=== PATIENT | female | born 1955 | race African-American/Black ===

== ENCOUNTER 2022-05-28 12:03 | Emergency (ER) | payer MEDICAID, OTHER ==
[~2022-05-28] VITALS: Ht 167.6 cm; Wt 90.0 kg
[~2022-05-28 12:03] MED LIST: LEVO500T2 MT; METR500T MT
[2022-05-28] MEDS ORDERED: SODIUM CHLORIDE 0.9% 1,000 ML IV ONE (12:15)
[2022-05-28 12:46] LABS: EOSINOPHILS % 1.4 % (0.0-5.0); HEMATOCRIT. 42.9 % (36.0-48.0); HEMOGLOBIN. 14.4 g/dL (12.0-16.0); LYMPHOCYTES % 17.2 % (20.0-50.0); MEAN CORPUSCULAR HEMOGLOBIN 32.1 pg (28.0-32.0); MEAN CORPUSCULAR VOLUME 95.5 fL (81.0-99.0); MEAN PLATELET VOLUME 7.2 fl (7.4-10.4); MONOCYTES % 14.3 % (2.0-8.0); NEUTROPHILS % 66.1 % (40.0-76.0); PLATELET 271 x1000/uL (130-400); RED BLOOD CELL COUNT 4.49 mill/uL (4.2-5.4); RED CELL DISTRIBUTION WIDTH 14.9 % (11.6-14.6)
[2022-05-28 12:53] LABS: CHLORIDE 103 mEq/L (98-107)
[2022-05-28 12:57] LABS: CLARITY URINE CLEAR (CLEAR); COLOR URINE YELLOW (YELLOW); KETONES URINE NEGATIVE (NEGATIVE); LEUKOCYTE ESTERASE URINE TRACE (NEGATIVE); NITRITE URINE NEGATIVE (NEGATIVE); OCCULT BLOOD URINE NEGATIVE (NEGATIVE); PH URINE 5.5 (4.5-8.0); PROTEIN URINE NEGATIVE (NEGATIVE); SPECIFIC GRAVITY URINE 1.005 (1.005-1.030); UROBILINOGEN URINE 0.2 E.U./dL (0.2-1.0)
[2022-05-28] MEDS ORDERED: CEFTRIAXONE 1 G PREMIX 50 ML IV ONE (13:00)
[2022-05-28] MEDS ORDERED: AZITHROMYCIN 500MG/250ML 250 ML IV ONE (13:00)
[2022-05-28 15:00] VITALS: BP 112/68
[2022-05-28] MEDS ORDERED: AZIT250T12 MT (15:23)
[2022-05-28] MEDS ORDERED: AMOX1TAB16 MT (15:23)
== END 2022-05-28 15:41 | disposition home or self-care (01) ==
LOC: ER 12:03
DX: R55 Syncope and collapse (principal); J18.9 Pneumonia, unspecified organism; F17.290 Nicotine dependence, other tobacco product, uncomplicated; Z88.5 Allergy status to narcotic agent; Z20.822 Contact with and (suspected) exposure to COVID-19
CPT/HCPCS: 36415; 71045; 80053; 81003; 84484; 85025; 87040; 87426; 93005; 96361; 96365; 96367; 99285; 99406; C9803; J0456; J0696; J7030

== ENCOUNTER 2025-02-17 23:19 | Emergency (ER) | payer MEDICARE, MEDICAID ==
[~2025-02-17] VITALS: Ht 162.6 cm; Wt 64.0 kg
[~2025-02-17 23:19] MED LIST changes: +AMOX1TAB16 MT; +AZIT250T12 MT
[2025-02-17 23:29] VITALS: TEMP 37; O2SAT 100
[2025-02-18 00:15] LABS: HEMOGLOBIN. 14.8 g/dL (12.0-16.0); MEAN CORPUSCULAR HEMOGLOBIN 28.5 pg (28.0-32.0); MEAN CORPUSCULAR HGB CONC 32.8 g/dL (31.0-37.0); MEAN CORPUSCULAR VOLUME 86.9 fL (81.0-99.0); MEAN PLATELET VOLUME 7.6 fl (7.4-10.4); PLATELET 296 x1000/uL (130-400); RED BLOOD CELL COUNT 5.18 mill/uL (4.2-5.4); WHITE BLOOD COUNT 11.4 x1000/uL (4.5-11.0)
[2025-02-18 00:20] LABS: DIFFERENTIAL COMMENT 1
[2025-02-18 00:21] LABS: CHLORIDE 101 mEq/L (98-107); POTASSIUM 3.8 mEq/L (3.5-5.1); SODIUM 134 mEq/L (136-145)
[2025-02-18 00:22] LABS: CARBON DIOXIDE 26 mEq/L (21-32)
[2025-02-18 00:27] LABS: CREATININE 0.9 mg/dL (0.6-1.0); ETHANOL BLOOD < 10 mg/dL (<10); GLUCOSE 161 mg/dL (70-105); TROPONIN I HIGH SENSITIVITY 9 ng/L (3.0-34); UREA NITROGEN BLOOD 13 mg/dL (9-23)
[2025-02-18 00:51] VITALS: BP 137/96; PULSE 77; RESP 20
[2025-02-18 00:51] LABS: INR 1.1; PROTHROMBIN TIME 11.4 sec (9.6-11.0)
[2025-02-18] MEDS: IBUPROFEN 600MG TABLET PO ONE (00:51)
[2025-02-18] MEDS ORDERED: ACET-2708 MT (01:04)
[2025-02-18] MEDS ORDERED: METH4TAB95 MT (01:04)
[2025-02-18 01:26] LABS: PLATELET ESTIMATE NORMAL
[2025-02-18 02:18] LABS: *AMPHETAMINES SCREEN URINE NEGATIVE (NEGATIVE); *BARBITURATES SCREEN URINE NEGATIVE (NEGATIVE); *BENZODIAZEPINES SCREEN URINE NEGATIVE (NEGATIVE); *COCAINE SCREEN URINE NEGATIVE (NEGATIVE); CANNABINOID URINE SCREEN NEGATIVE (NEGATIVE); ECSTASY MDMA SCREEN URINE NEGATIVE (NEGATIVE); METHADONE URINE SCREEN NEGATIVE (NEGATIVE); OPIATES URINE SCREEN NEGATIVE (NEGATIVE); PHENCYCLIDINE URINE SCREEN NEGATIVE (NEGATIVE)
== END 2025-02-18 02:30 | disposition home or self-care (01) ==
LOC: ER 23:19 → CANBEDREQ 02-18 01:59 → ER 02-18 02:30
DX: M25.511 Pain in right shoulder (principal); I25.2 Old myocardial infarction; I10 Essential (primary) hypertension; Z00.00 Encounter for general adult medical examination without abnormal findings; Z88.5 Allergy status to narcotic agent; Z79.899 Other long term (current) drug therapy; Z90.710 Acquired absence of both cervix and uterus
CPT/HCPCS: 36415; 71045; 73030; 80048; 80305; 80320; 83880; 84484; 85025; 93005; 99284; 99285; G0480

== ENCOUNTER 2025-08-09 00:07 | Inpatient (IN) | payer MEDICARE, MEDICAID ==
[~2025-08-09] VITALS: Ht 162.6 cm; Wt 82.2 kg
[2025-08-09] VITALS (10 sets, daily range): BP systolic 109–132; BP diastolic 70–85; PULSE 70–82; RESP 14–28; TEMP 36.5–37; O2SAT 88–93
[~2025-08-09 00:07] MED LIST changes: +ACET-2708 MT; +METH4TAB95 MT
[2025-08-09 00:31] LABS: BASOPHILS % 1.0 % (0.0-2.0); EOSINOPHILS % 0.8 % (0.0-5.0); HEMATOCRIT. 46.6 % (36.0-48.0); HEMOGLOBIN. 14.9 g/dL (12.0-16.0); LYMPHOCYTES % 12.2 % (20.0-50.0); MEAN PLATELET VOLUME 7.5 fl (7.4-10.4); MONOCYTES % 11.5 % (2.0-8.0); NEUTROPHILS % 74.5 % (40.0-76.0); PLATELET 287 x1000/uL (130-400); RED BLOOD CELL COUNT 5.77 mill/uL (4.2-5.4); RED CELL DISTRIBUTION WIDTH 19.3 % (11.6-14.6)
[2025-08-09 00:38] LABS: CREATININE 0.7 mg/dL (0.6-1.0); INR 1.2
[2025-08-09 00:39] LABS: TROPONIN I HIGH SENSITIVITY 19 ng/L (3.0-34); UREA NITROGEN BLOOD 8 mg/dL (9-23)
[2025-08-09 00:40] LABS: ASPARTATE AMINOTRANSFERASE 18 IU/L (<34); BILIRUBIN DIRECT 0.9 mg/dL (<=3.0)
[2025-08-09 00:41] LABS: BILIRUBIN TOTAL 1.9 mg/dL (0.1-1.0); PROTEIN TOTAL 7.5 g/dL (6.0-8.3)
[2025-08-09 01:12] LABS: BG BASE EXCESS 0.0 mmol/L (-2.0-3.0); BG CARBOXYHEMOGLOBIN 3.5 % (0.5-1.5); BG DEOXYHEMOGLOBIN 0.3 % (0.0-5.0); BG FRACTION INSPIRED OXYGEN 100; BG HCO3 ACT 26.5 mmol/L (21.0-28.0); BG METHEMOGLOBIN 0.1 % (0.5-1.5); BG OXYGEN SATURATION 99.7 % (94.0-98.0); BG OXYHEMOGLOBIN 96.1 % (94.0-98.0); BG PCO2 50.1 mmHg (32.0-45.0); BG PH 7.341 (7.350-7.450); BG PO2 288.4 mmHg (83.0-108.0); BG SAMPLE SITE LEFT RADIAL; BG TOTAL HEMOGLOBIN 15.3 g/dL (12.0-16.0); BG VENT MODE MASK - BIPAP; BG VENT RATE 18.0 set
[2025-08-09] MEDS: FUROSEMIDE 40MG/4ML VIAL IVP NR (02:40)
[2025-08-09] MEDS ORDERED: DOCUSATE SODIUM 100MG CAPSULE PO PRN (05:30)
[2025-08-09] MEDS ORDERED: CLONIDINE 0.1MG TABLET PO PRN (05:30)
[2025-08-09] MEDS ORDERED: MAGNESIUM/ALUMINUM HYDROXIDE/SIMETHICONE 30ML UDC PO PRN (05:30)
[2025-08-09] MEDS ORDERED: GUAIFENESIN 200MG/10ML SUGAR FREE UDC PO PRN (05:30)
[2025-08-09] MEDS ORDERED: IPRATROPIUM/ALBUTEROL 0.5-3(2.5)MG/3ML NEB HHN PRN (05:30)
[2025-08-09] MEDS: IPRATROPIUM/ALBUTEROL 0.5-3(2.5)MG/3ML NEB HHN SCH (05:37)
[2025-08-09 05:42] LABS: CLARITY URINE CLEAR (CLEAR); COLOR URINE YELLOW (YELLOW); GLUCOSE URINE NEGATIVE (NEGATIVE); KETONES URINE NEGATIVE (NEGATIVE); LEUKOCYTE ESTERASE URINE NEGATIVE (NEGATIVE); NITRITE URINE NEGATIVE (NEGATIVE); OCCULT BLOOD URINE NEGATIVE (NEGATIVE); PH URINE 6.0 (4.5-8.0); PROTEIN URINE NEGATIVE (NEGATIVE); SPECIFIC GRAVITY URINE 1.007 (1.005-1.030); UROBILINOGEN URINE 1.0 E.U./dL (0.2-1.0)
[2025-08-09] MEDS: POTASSIUM CHLORIDE 20MEQ/PACKET PO NR (05:54)
[2025-08-09 06:02] LABS: *AMPHETAMINES SCREEN URINE NEGATIVE (NEGATIVE); *BARBITURATES SCREEN URINE NEGATIVE (NEGATIVE); *BENZODIAZEPINES SCREEN URINE NEGATIVE (NEGATIVE); *COCAINE SCREEN URINE NEGATIVE (NEGATIVE); METHADONE URINE SCREEN NEGATIVE (NEGATIVE); OPIATES URINE SCREEN NEGATIVE (NEGATIVE)
[2025-08-09 06:03] LABS: CANNABINOID URINE SCREEN NEGATIVE (NEGATIVE); ECSTASY MDMA SCREEN URINE NEGATIVE (NEGATIVE); PHENCYCLIDINE URINE SCREEN NEGATIVE (NEGATIVE)
[2025-08-09 06:18] LABS: INFLUENZA TYPE A Presumptive Negative (Pres. Neg.)
[2025-08-09 06:19] LABS: INFLUENZA TYPE B Presumptive Negative (Pres. Neg.)
[2025-08-09 06:20] LABS: RESPIRATORY SYNCYTIAL VIRUS Not Detected (Not Detectd)
[2025-08-09] MEDS: ACETAMINOPHEN 325MG TABLET PO PRN ×2 (06:40→15:35)
[2025-08-09 07:00] LABS: PHOSPHORUS 4.6 mg/dL (2.5-4.9); TROPONIN I HIGH SENSITIVITY 20 ng/L (3.0-34)
[2025-08-09] MEDS: FUROSEMIDE 40MG/4ML VIAL IV SCH (07:44)
[2025-08-09] MEDS: ENOXAPARIN 40MG/0.4ML SYR SUBCUT SCH (09:32)
[2025-08-09] MEDS: MAGNESIUM 2 G PREMIX 50 ML IV SCH ×2 (10:00→21:53)
[2025-08-09] MEDS ORDERED: FURO20TA4 MT (14:25)
[2025-08-09] MEDS ORDERED: ALBU90AE INH (14:25)
[2025-08-09] MEDS ORDERED: AMLO5TAB88 PO (14:25)
[2025-08-09] MEDS: HYDROCODONE/ACETAMINOPHEN 5/325MG TABLET PO PRN (15:59)
[2025-08-09] MEDS: DEXAMETHASONE 4MG/ML 1ML VIAL IV SCH (17:37)
[2025-08-09] MEDS: FAMOTIDINE 20MG TABLET PO SCH (21:53)
[2025-08-09 22:43] LABS: TROPONIN I HIGH SENSITIVITY 21 ng/L (3.0-34)
[2025-08-10] VITALS (15 sets, daily range): BP systolic 100–129; BP diastolic 70–85; PULSE 72–92; RESP 12–34; TEMP 36.7–37; O2SAT 79–99
[2025-08-10 05:29] LABS: HEMATOCRIT. 46.3 % (36.0-48.0); HEMOGLOBIN. 14.8 g/dL (12.0-16.0); MEAN PLATELET VOLUME 7.7 fl (7.4-10.4); PLATELET 275 x1000/uL (130-400); RED BLOOD CELL COUNT 5.74 mill/uL (4.2-5.4); RED CELL DISTRIBUTION WIDTH 19.5 % (11.6-14.6)
[2025-08-10 05:36] LABS: CREATININE 0.8 mg/dL (0.6-1.0); TRIGLYCERIDE 50 mg/dL (0-150); TROPONIN I HIGH SENSITIVITY 14 ng/L (3.0-34); UREA NITROGEN BLOOD 11 mg/dL (9-23)
[2025-08-10 05:37] LABS: LDL CHOLESTEROL 84 mg/dL (5-100)
[2025-08-10 05:40] LABS: T4 FREE 1.31 ng/dL (0.89-1.76)
[2025-08-10] MEDS: FUROSEMIDE 40MG/4ML VIAL IV SCH (09:20)
[2025-08-10] MEDS: LIDOCAINE 5% PATCH TOP SCH (10:30)
[2025-08-10 14:02] LABS: ASPARTATE AMINOTRANSFERASE 14 IU/L (<34); BILIRUBIN DIRECT 0.7 mg/dL (<=3.0); BILIRUBIN TOTAL 1.4 mg/dL (0.1-1.0); PHOSPHORUS 4.6 mg/dL (2.5-4.9); PROTEIN TOTAL 7.0 g/dL (6.0-8.3)
[2025-08-10 16:32] LABS: LYMPHOCYTES % MANUAL 8.0 % (20.0-60.0); MONOCYTES % MANUAL 9.0 % (2.0-8.0); NEUTROPHILS % MANUAL 83.0 % (45.0-75.0); PLATELET ESTIMATE NORMAL
[2025-08-11] VITALS (18 sets, daily range): BP systolic 109–138; BP diastolic 68–97; PULSE 65–90; RESP 13–27; TEMP 36.4–37.1; O2SAT 88–100
[2025-08-11] MEDS: KETOROLAC 15MG/ML VIAL IV NR (03:54)
[2025-08-11 06:23] LABS: HEMATOCRIT. 43.3 % (36.0-48.0); HEMOGLOBIN. 13.9 g/dL (12.0-16.0); MEAN PLATELET VOLUME 7.7 fl (7.4-10.4); PLATELET 289 x1000/uL (130-400); RED BLOOD CELL COUNT 5.41 mill/uL (4.2-5.4); RED CELL DISTRIBUTION WIDTH 20.0 % (11.6-14.6)
[2025-08-11 06:33] LABS: CREATININE 0.8 mg/dL (0.6-1.0); UREA NITROGEN BLOOD 14 mg/dL (9-23)
[2025-08-11 06:36] LABS: PHOSPHORUS 3.7 mg/dL (2.5-4.9)
[2025-08-11 09:42] LABS: BAND% 7.0 % (1.0-6.0); LYMPHOCYTES % MANUAL 3.0 % (20.0-60.0); MONOCYTES % MANUAL 2.0 % (2.0-8.0); NEUTROPHILS % MANUAL 88.0 % (45.0-75.0); NUCLEATED RED BLOOD CELLS 1 /100 WBC
[2025-08-11 09:43] LABS: PLATELET ESTIMATE NORMAL
[2025-08-11] MEDS: MAGNESIUM 1 G PREMIX 100 ML IV ONE (09:56)
[2025-08-11] MEDS: MAGNESIUM OXIDE 400MG TABLET PO SCH (17:59)
[2025-08-11] MEDS ORDERED: MAGNESIUM 1 G PREMIX 100 ML IV ONE (18:00)
[2025-08-12] VITALS (15 sets, daily range): BP systolic 127–148; BP diastolic 80–88; PULSE 66–87; RESP 12–24; TEMP 36.7–36.9; O2SAT 72–99
[2025-08-12] MEDS: ONDANSETRON HCL 4MG/2ML INJ IV PRN (02:26)
[2025-08-12 07:21] LABS: HEMATOCRIT. 44.2 % (36.0-48.0); HEMOGLOBIN. 14.1 g/dL (12.0-16.0); MEAN PLATELET VOLUME 7.3 fl (7.4-10.4); PLATELET 292 x1000/uL (130-400); RED BLOOD CELL COUNT 5.56 mill/uL (4.2-5.4); RED CELL DISTRIBUTION WIDTH 19.7 % (11.6-14.6)
[2025-08-12 07:32] LABS: CREATININE 0.8 mg/dL (0.6-1.0); UREA NITROGEN BLOOD 11 mg/dL (9-23)
[2025-08-12 07:34] LABS: PHOSPHORUS 3.3 mg/dL (2.5-4.9)
[2025-08-12] MEDS: AMLODIPINE 5MG TABLET PO SCH (08:37)
[2025-08-12] MEDS ORDERED: ACET-2708 MT (12:44)
[2025-08-12] MEDS ORDERED: ALBU90AE INH (12:44)
[2025-08-12] MEDS ORDERED: FURO40TA5 MT (12:46)
[2025-08-12] MEDS ORDERED: DEXA6TAB MT (12:47)
[2025-08-12] MEDS: FUROSEMIDE 40MG/4ML VIAL IVP NR (13:49)
[2025-08-12 14:28] LABS: BG BASE EXCESS 6.0 mmol/L (-2.0-3.0); BG CARBOXYHEMOGLOBIN 2.0 % (0.5-1.5); BG DEOXYHEMOGLOBIN 24.8 % (0.0-5.0); BG FRACTION INSPIRED OXYGEN 21; BG HCO3 ACT 31.8 mmol/L (21.0-28.0); BG METHEMOGLOBIN 0.0 % (0.5-1.5); BG OXYGEN SATURATION 74.7 % (94.0-98.0); BG OXYHEMOGLOBIN 73.2 % (94.0-98.0); BG PCO2 49.5 mmHg (32.0-45.0); BG PH 7.425 (7.350-7.450); BG PO2 39.8 mmHg (83.0-108.0); BG SAMPLE SITE RIGHT BRACHIAL; BG TOTAL HEMOGLOBIN 15.5 g/dL (12.0-16.0); BG VENT MODE ROOM AIR
[2025-08-12 21:49] LABS: LYMPHOCYTES % MANUAL 10.0 % (20.0-60.0); MONOCYTES % MANUAL 13.0 % (2.0-8.0); NEUTROPHILS % MANUAL 77.0 % (45.0-75.0); PLATELET ESTIMATE NORMAL
== END 2025-08-12 18:02 | disposition left against medical advice (07) | DRG 871 ==
LOC: ER 00:07 → 5EST 03:58 → EDBEDREQ 04:05 → EDBEDREQTM 04:05 → ENRESERV 07:52
PROVIDERS: ADMIT Internal Medicine; ATTEND Internal Medicine
PROC: 5A09357 Assistance with Respiratory Ventilation, Less than 24 Consecutive Hours, Continuous Positive Airway Pressure (ICD-10-PCS; principal; 2025-08-09)
DX: A41.89 Other specified sepsis (principal); I50.23 Acute on chronic systolic (congestive) heart failure; J12.82 Pneumonia due to coronavirus disease 2019; J96.21 Acute and chronic respiratory failure with hypoxia; U07.1 COVID-19; J96.22 Acute and chronic respiratory failure with hypercapnia; J44.0 Chronic obstructive pulmonary disease with (acute) lower respiratory infection; I11.0 Hypertensive heart disease with heart failure; E11.9 Type 2 diabetes mellitus without complications; E87.1 Hypo-osmolality and hyponatremia; J44.1 Chronic obstructive pulmonary disease with (acute) exacerbation; E78.5 Hyperlipidemia, unspecified; E83.42 Hypomagnesemia; E87.8 Other disorders of electrolyte and fluid balance, not elsewhere classified; I45.10 Unspecified right bundle-branch block; M25.511 Pain in right shoulder; Z53.29 Procedure and treatment not carried out because of patient's decision for other reasons; F17.210 Nicotine dependence, cigarettes, uncomplicated; I25.2 Old myocardial infarction; Z79.899 Other long term (current) drug therapy; Z88.5 Allergy status to narcotic agent; Z90.710 Acquired absence of both cervix and uterus; Z71.6 Tobacco abuse counseling
CPT/HCPCS: 36415; 36600; 71045; 80048; 80061; 80076; 80305; 80320; 81003; 82375; 82550; 82805; 83036; 83605; 83735; 83880; 84100; 84145; 84439; 84443; 84484; 85025; 87420; 87426; 87804; 93005; 93306; 94070; 94640; 94660; 94664; 98960; 99291; A4606; J1100; J1650; J1885; J1938; J2405; J3475; G0480